=== PATIENT | male | born 1990 | race Hispanic/Latino ===

== ENCOUNTER 2019-03-01 22:55 | Emergency (ER) | payer SELFPAY ==
--- NOTE | 2019-03-02 00:09 | ER ---
Nurse's Notes [facility] Name: Dneny Ramesh Age: 28 yrs Sex: Male : 1990 Arrival Date: 03/01/2019 Time: 22:59 Bed 26 Private MD: Diagnosis: Contusion of left foot Presentation: 03/01 23:08 Presenting complaint: Patient states: left top of foot pain since 1700 while at work ak1 when he twisted his foot against a fork lift. redness and abrasion noted to top of foot. Transition of care: patient was not received from another setting of care. Onset of symptoms was March 01, 2019. Risk Assessment: Do you want to hurt yourself or someone else? Patient reports no desire to harm self or others. Initial Sepsis Screen: Does the patient meet any 2 criteria? No. Patient's initial sepsis screen is negative. Does the patient have a suspected source of infection? No. Patient's initial sepsis screen is negative. Care prior to arrival: None. 23:08 Method Of Arrival: Wheelchair ak1 23:08 Acuity: LALITHA 4 ak1 Triage Assessment: 23:09 General: Appears in no apparent distress. Behavior is calm, cooperative. Pain: ak1 Complains of pain in dorsum of left foot. 23:10 EENT: No signs and/or symptoms were reported regarding the EENT system. Neuro: No ak1 deficits noted. Cardiovascular: No deficits noted. Respiratory: No deficits noted. GI: No signs and/or symptoms were reported involving the gastrointestinal system. : No signs and/or symptoms were reported regarding the genitourinary system. Derm: abrasion to top of left foot. Musculoskeletal: Range of motion: limited in left ankle pt would not walk on left foot. Injury Description: pt stated he twisted his foot against a fork lift at work at 1700 today. 23:13 Injury Description:. ca1 Historical: - Allergies: 23:09 No Known Allergies; ak1 - Home Meds: 23:09 None [Active]; ak1 - PMHx: 23:09 None; ak1 - PSHx: 23:09 None; ak1 - Immunization history:: Adult Immunizations up to date, Last tetanus immunization: up to date < 5 years ago. - Social history:: Smoking status: Patient uses tobacco products, smokes one-half pack cigarettes per day. - Ebola Screening: : No symptoms or risks identified at this time. Screenin:10 Abuse screen: Denies threats or abuse. Denies injuries from another. Nutritional ak1 screening: No deficits noted. Tuberculosis screening: No symptoms or risk factors identified. Fall Risk Gait- Impaired (20 pts.). Assessment: 23:11 General: Appears in no apparent distress. uncomfortable, Behavior is calm, cooperative, ca1 appropriate for age. Pain: Complains of pain in left foot Pain currently is 5 out of 10 on a pain scale. Quality of pain is described as numb, Pain began. Neuro: Level of Consciousness is awake, alert, obeys commands, Oriented to person, place, time, situation, Appropriate for age. Cardiovascular: Heart tones S1 S2 present Capillary refill < 3 seconds Patient's skin is warm and dry. Respiratory: Airway is patent Respiratory effort is even, unlabored, Respiratory pattern is regular, symmetrical, Breath sounds are clear bilaterally. GI: No deficits noted. No signs and/or symptoms were reported involving the gastrointestinal system. : No deficits noted. No signs and/or symptoms were reported regarding the genitourinary system. EENT: No deficits noted. No signs and/or symptoms were reported regarding the EENT system. Derm: Skin is intact, is healthy with good turgor, Skin is pink, warm \T\ dry. Musculoskeletal: Circulation, motion, and sensation intact. Capillary refill < 3 seconds, Range of motion: limited in left ankle. 03/02 00:15 Reassessment: Patient appears in no apparent distress at this time. Patient and/or ca1 family updated on plan of care and expected duration. Pain level reassessed. Patient is alert, oriented x 3, equal unlabored respirations, skin warm/dry/pink. 00:42 Reassessment: Patient appears in no apparent distress at this time. Patient is alert, ca1 oriented x 3, equal unlabored respirations, skin warm/dry/pink. Patient is alert/active/playful, equal unlabored respirations, skin warm/dry/pink. Applied boot at R foot. PT tolerated well. Vital Signs: 03/01 23:08 BP 134 / 97; Pulse 88; Resp 18; Temp 98.3; Pulse Ox 98% on R/A; Weight 79.38 kg (R); ak1 Height 5 ft. 7 in. (170.18 cm) (R); Pain 8/; 03/02 00:05 BP 140 / 95; Pulse 88; Resp 17 S; Pulse Ox 100% ; ca1 00:42 BP 127 / 82; Pulse 90; Resp 16 S; Pulse Ox 99% on R/A; ca1 03/01 23:08 Body Mass Index 27.41 (79.38 kg, 170.18 cm) ak1 ED Course: 03/01 22:59 Patient arrived in ED. es 23:03 Stella Chandra, RN is Primary Nurse. ca1 23:09 Triage completed. ak1 23:09 Arm band placed on Patient placed in an exam room, on a stretcher, Patient notified of ak1 wait time. 23:10 Patient has correct armband on for positive identification. Placed in gown. Bed in low ak1 position. Call light in reach. Side rails up X 1. Adult w/ patient. Pulse ox on. NIBP on. 23:21 Maged Dominguez PA is PHCP. jr8 23:21 Bo Paredes MD is Attending Physician. jr8 03/02 00:01 X-ray completed. Portable x-ray completed in exam room. Patient tolerated procedure kw well. 00:05 XRAY Foot LEFT 3 View In Process Unspecified. EDMS 00:08 Jonas Blanchard MD is Referral Physician. jr8 00:32 walker boot on left foot. ca1 00:44 No provider procedures requiring assistance completed. Patient did not have IV access ca1 during this emergency room visit. Administered Medications: 00:12 Drug: morphine 4 mg Route: IM; Site: right deltoid; ca1 00:32 Follow up: Response: No adverse reaction; Pain is decreased ca1 00:12 Drug: Zofran 4 mg Route: PO; ca1 00:32 Follow up: Response: No adverse reaction; Nausea is decreased ca1 Outcome: 00:08 Discharge ordered by . jr8 00:44 Discharged to home via wheelchair, with significant other. ca1 00:44 Condition: stable 00:44 Discharge instructions given to patient, Instructed on discharge instructions, follow up and referral plans. Demonstrated understanding of instructions, follow-up care. 00:44 Patient left the ED. ca1 Signatures: Dispatcher [employer] [facility] [place], [place] Dominique Davidson Josh, PA PA jr8 Carolina Jackson, RN RN ak1 Stella Chandra, RN RN ca1
--- NOTE | 2019-03-02 00:09 | EDPHYS ---
Physician Documentation [facility] Name: Denny Ramesh Age: 28 yrs Sex: Male : 1990 Arrival Date: 03/01/2019 Time: 22:59 Bed 26 Private MD: ED Physician Bo Paredes HPI: 03/02 00:03 This 28 yrs old Male presents to ER via Wheelchair with complaints of Foot jr8 Injury. 00:03 The patient presents with decreased range of motion, pain, tenderness. The complaints jr8 affect the medial aspect of left foot and dorsum of left foot. Context: The problem was sustained at work, resulted from a crush injury. Onset: The symptoms/episode began/occurred acutely, today. Modifying factors: The symptoms are alleviated by nothing. the symptoms are aggravated by movement, weight bearing. Associated signs and symptoms: The patient has no apparent associated signs or symptoms. Severity of symptoms: At their worst the symptoms were moderate, in the emergency department the symptoms are unchanged. The patient has not experienced similar symptoms in the past. The patient has not recently seen a physician. Patient stated that a forklift at work accidently caught the bottom of his boot causing it to get crushed in between a pipe. Historical: - Allergies: 03/01 23:09 No Known Allergies; ak1 - Home Meds: 23:09 None [Active]; ak1 - PMHx: 23:09 None; ak1 - PSHx: 23:09 None; ak1 - Immunization history:: Adult Immunizations up to date, Last tetanus immunization: up to date < 5 years ago. - Social history:: Smoking status: Patient uses tobacco products, smokes one-half pack cigarettes per day. - Ebola Screening: : No symptoms or risks identified at this time. ROS: 03/02 00:03 Eyes: Negative for injury, pain, redness, and discharge, ENT: Negative for injury, jr8 pain, and discharge, Neck: Negative for injury, pain, and swelling, Cardiovascular: Negative for chest pain, palpitations, and edema, Respiratory: Negative for shortness of breath, cough, wheezing, and pleuritic chest pain, Abdomen/GI: Negative for abdominal pain, nausea, vomiting, diarrhea, and constipation, Back: Negative for injury and pain, Skin: Negative for injury, rash, and discoloration, Neuro: Negative for headache, weakness, numbness, tingling, and seizure. MS/extremity: Positive for abrasion, ecchymosis, pain, tenderness, of the medial aspect of left foot and dorsum of left foot. Exam: 00:03 Eyes: Pupils equal round and reactive to light, extra-ocular motions intact. Lids and jr8 lashes normal. Conjunctiva and sclera are non-icteric and not injected. Cornea within normal limits. Periorbital areas with no swelling, redness, or edema. ENT: Nares patent. No nasal discharge, no septal abnormalities noted. Tympanic membranes are normal and external auditory canals are clear. Oropharynx with no redness, swelling, or masses, exudates, or evidence of obstruction, uvula midline. Mucous membranes moist. Neck: Trachea midline, no thyromegaly or masses palpated, and no cervical lymphadenopathy. Supple, full range of motion without nuchal rigidity, or vertebral point tenderness. No Meningismus. Cardiovascular: Regular rate and rhythm with a normal S1 and S2. No gallops, murmurs, or rubs. Normal PMI, no JVD. No pulse deficits. Respiratory: Lungs have equal breath sounds bilaterally, clear to auscultation and percussion. No rales, rhonchi or wheezes noted. No increased work of breathing, no retractions or nasal flaring. Abdomen/GI: Soft, non-tender, with normal bowel sounds. No distension or tympany. No guarding or rebound. No evidence of tenderness throughout. Back: No spinal tenderness. No costovertebral tenderness. Full range of motion. Skin: Warm, dry with normal turgor. Normal color with no rashes, no lesions, and no evidence of cellulitis. Neuro: Awake and alert, GCS 15, oriented to person, place, time, and situation. Cranial nerves II-XII grossly intact. Motor strength 5/5 in all extremities. Sensory grossly intact. Cerebellar exam normal. Normal gait. 00:03 Musculoskeletal/extremity: Extremities: grossly normal except: noted in the medial aspect of left foot and dorsum of left foot: abrasion, ecchymosis, pain, tenderness, Abrasion with tenderness and bruising to dorsum of left foot. Another bruise noted to bottom medial aspect of left foot. Tender to palpation. No crepitus noted , ROM: intact in all extremities, Circulation is intact in all extremities. Sensation intact. Vital Signs: 03/01 23:08 BP 134 / 97; Pulse 88; Resp 18; Temp 98.3; Pulse Ox 98% on R/A; Weight 79.38 kg (R); ak1 Height 5 ft. 7 in. (170.18 cm) (R); Pain 8/10; 03/02 00:05 BP 140 / 95; Pulse 88; Resp 17 S; Pulse Ox 100% ; ca1 00:42 BP 127 / 82; Pulse 90; Resp 16 S; Pulse Ox 99% on R/A; ca1 03/01 23:08 Body Mass Index 27.41 (79.38 kg, 170.18 cm) ak1 Procedures: 00:07 Splinting: Splint applied to left foot using Ortho 3D boot, applied by nurse. Examined jr8 by me, post splint application: neurovascular intact, 2+ distal pulses palpable, brisk capillary refill noted, Patient tolerated well. MDM: 03/01 23:21 Patient medically screened. jr8 03/02 00:07 Data reviewed: vital signs, nurses notes, radiologic studies, plain films, and as a jr8 result, I will discharge patient. Data interpreted: Pulse oximetry: on room air is 98 %. Interpretation: normal. Test interpretation: by ED physician or midlevel provider: plain radiologic studies, No acute osseous finding on plain film of left foot . Counseling: I had a detailed discussion with the patient and/or guardian regarding: the historical points, exam findings, and any diagnostic results supporting the discharge/admit diagnosis, radiology results, the need for outpatient follow up, a orthopedic surgeon, to return to the emergency department if symptoms worsen or persist or if there are any questions or concerns that arise at home. 03/01 23:27 Order name: XRAY Foot LEFT 3 View jr8 03/02 00:06 Order name: Splint; Complete Time: 00:32 jr8 Administered Medications: 00:12 Drug: morphine 4 mg Route: IM; Site: right deltoid; ca1 00:32 Follow up: Response: No adverse reaction; Pain is decreased ca1 00:12 Drug: Zofran 4 mg Route: PO; ca1 00:32 Follow up: Response: No adverse reaction; Nausea is decreased ca1 Disposition: 02:54 Co-signature as Attending Physician, Bo Paredes MD. gs Disposition: 03/02/19 00:08 Discharged to Home. Impression: Contusion of left foot. - Condition is Stable. - Discharge Instructions: Foot Contusion. - Medication Reconciliation Form, Thank You Letter, Antibiotic Education, Prescription Opioid Use, Work release form form. - Follow up: Jonas Blanchard MD; When: 5 - 6 days; Reason: Recheck today's complaints, Continuance of care, Re-evaluation by your physician. - Problem is new. - Symptoms have improved. Signatures: Dispatcher [employer] EDMS Maged Dominguez PA PA jr8 Carolina Jackson, RN RN ak1 Bo Paredes MD MD Acob, Stella, RN RN ca1 Corrections: (The following items were deleted from the chart) 00:44 00:08 03/02/2019 00:08 Discharged to Home. Impression: Contusion of left foot. ca1 Condition is Stable. Forms are Medication Reconciliation Form, Thank You Letter, Antibiotic Education, Prescription Opioid Use. Follow up: Jonas Blanchard; When: 5 - 6 days; Reason: Recheck today's complaints, Continuance of care, Re-evaluation by your physician. Problem is new. Symptoms have improved. jr8
[2019-03-02] MEDS ORDERED: MORPHINE 4 MG/ML SYR ONE (00:22)
[2019-03-02] MEDS ORDERED: ONDANSETRON 4 MG (ODT) TAB ONE (00:22)
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
== END 2019-03-02 00:44 | disposition home or self-care (01) ==
LOC: ER 22:55
DX: S90.32XA Contusion of left foot, initial encounter (principal); W23.0XXA Caught, crushed, jammed, or pinched between moving objects, initial encounter; Y93.89 Activity, other specified; Y92.89 Other specified places as the place of occurrence of the external cause; Y99.8 Other external cause status; F17.210 Nicotine dependence, cigarettes, uncomplicated
CPT/HCPCS: 96372; 99284

== ENCOUNTER 2019-05-17 07:10 | Emergency (ER) | payer SELFPAY ==
[2019-05-17] MEDS ORDERED: ONDANSETRON 4 MG/2 ML VIAL ONE ×2 (07:16→07:39)
[2019-05-17] MEDS ORDERED: NA CHLORIDE 0.9% 2,000 ML ONE (07:16)
[2019-05-17 07:34] LABS: Basophils % 0.6 % (0-1.3); Hematocrit 41.4 % (39.6-49.0); Lymphocytes % 26.6 % (15.3-44.8); MPV 7.6 fL (7.6-11.3); RBC Red Blood Cell Count 4.52 M/uL (4.33-5.43)
[2019-05-17] MEDS ORDERED: CEFAZOLIN SODIUM 1 GM/VIAL ONE (07:34)
[2019-05-17] MEDS ORDERED: CEFAZOLIN/SWI 1gm 1 GM/10 ML SYR ONE (07:34)
[2019-05-17] MEDS ORDERED: TETANUS & DIPHTHERIA TOX,ADULT 0.5 ML VIAL ONE (07:34)
[2019-05-17 07:46] LABS: Potassium 3.3 mmol/L (3.5-5.1)
[2019-05-17 08:04] LABS: Protime INR 0.96
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
[2019-05-17 08:15] LABS: ALT/SGPT 41 U/L (12-78); AST/SGOT 19 U/L (15-37); Albumin 4.3 g/dL (3.4-5.0); Alkaline Phosphatase 77 U/L (45-117); Bilirubin Direct < 0.1 mg/dL (0-0.2); Bilirubin Total 0.3 mg/dL (0.2-1.0)
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
[2019-05-17] MEDS ORDERED: NA CHLORIDE 0.9% 1,000 ML ONE (08:25)
[2019-05-17] MEDS ORDERED: KCL 20 MEQ/100 mL IVPB 20 MEQ/100 ML BAG IV ONE (08:25)
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
[2019-05-17 10:25] LABS: Urine Blood 1+ (NEG); Urine Glucose NEGATIVE (NEG); Urine Protein NEGATIVE (NEG); Urine pH 5.5 (5.0-7.0)
[2019-05-17 10:40] LABS: Barbiturates NEGATIVE (NEGATIVE); Benzodiazepines NEGATIVE (NEGATIVE); Cocaine NEGATIVE (NEGATIVE); METHAMPHETAM POSITIVE (NEGATIVE); Methadone NEGATIVE (NEGATIVE); Opiates NEGATIVE (NEGATIVE); Phencyclidine NEGATIVE (NEGATIVE); THC Cannibis NEGATIVE (NEGATIVE)
--- NOTE | 2019-05-18 17:39 | EKG ---
Test Date: 2019-05-17 Test Time: 08:11:57 Hauling Contractor: [place] MEASUREMENT RESULTS: Intervals: Rate: 117 KS: 134 QRSD: 66 QT: 320 QTc: 446 [place]: P: 59 KS: 134 QRS: 56 T: 46 INTERPRETIVE STATEMENTS: Sinus tachycardia Otherwise normal ECG No previous ECG available for comparison Electronically Signed On 05-18-19 17:35:24 CDT by Gigi Mracos
== END 2019-05-17 10:35 | disposition home or self-care (01) ==
LOC: ER 07:10
PROC: 0JQ10ZZ Repair Face Subcutaneous Tissue and Fascia, Open Approach (ICD-10-PCS; principal; 2019-05-17)
DX: S01.81XA Laceration without foreign body of other part of head, initial encounter (principal); F10.129 Alcohol abuse with intoxication, unspecified; E87.6 Hypokalemia; Y09 Assault by unspecified means; Y93.9 Activity, unspecified; Y92.89 Other specified places as the place of occurrence of the external cause; Z23 Encounter for immunization; Z72.0 Tobacco use
CPT/HCPCS: 36415; 70450; 70486; 71045; 72125; 76377; 80048; 80076; 80307; 80320; 80329; 81003; 85025; 85610; 85730; 86850; 86900; 86901; 90471; 90714; 93005; 96366; 96375; 99291; 99292; J0690; J2405; J7030

== ENCOUNTER 2019-10-15 15:27 | Emergency (ER) | payer SELFPAY ==
[2019-10-15] MEDS ORDERED: LIDOCAINE 1% MPF 5 ML VIAL ONE (16:14)
--- NOTE | 2019-10-15 16:21 | RAD REPORT ---
EXAM DESCRIPTION: RAD - Hand Right 3 View - 10/15/2019 4:02 pm CLINICAL HISTORY: Right hand pain status post injury FINDINGS: No fracture or dislocation is seen. Soft tissue laceration lateral fifth proximal phalanx. 3 millimeter radiopaque foreign body is presen t
[2019-10-15] MEDS ORDERED: BUPIVACAINE 0.5% PF 10 ML VIAL ONE (16:27)
[2019-10-15] MEDS ORDERED: TETANUS & DIPHTHERIA TOX,ADULT 0.5 ML VIAL ONE (17:24)
--- NOTE | 2019-10-15 17:27 | RAD REPORT ---
EXAM DESCRIPTION: RAD - Hand Right 2 View - 10/15/2019 5:16 pm CLINICAL HISTORY: Foreign body right hand FINDINGS: Previously described foreign body is not visualized
--- NOTE | 2019-10-15 17:45 | EDPHYS ---
Physician Documentation [facility] Name: Denny Ramesh Age: 29 yrs Sex: Male : 1990 Arrival Date: 10/15/2019 Time: 15:28 Bed 12 Private MD: ED Physician Jason John HPI: 10/15 16:14 This 29 yrs old Male presents to ER via Ambulatory with complaints of Finger pm1 Laceration. 16:14 The patient or guardian reports a laceration, irregular. The complaints affect the pm1 medial aspect of right 5th finger. Context: The problem was sustained at work, resulted from glass window. Onset: The symptoms/episode began/occurred just prior to arrival. Modifying factors: The symptoms are alleviated by pressure to area, the symptoms are aggravated by nothing. Associated signs and symptoms: Pertinent negatives: cyanosis distally, decreased sensation distally, numbness distally, tingling distally. Severity of symptoms: in the emergency department the symptoms are unchanged. The patient has not experienced similar symptoms in the past. It is unknown whether or not the patient has recently seen a physician. Patient was breaking down a wall that had a window pane on it. The wall fell down with the glass and cut the medial aspect of his right proximal 5th finger. No foreign body sensation. Sensation and full range of motion intact to right fingers. Historical: - Allergies: 15:37 No Known Allergies; sg - Home Meds: 15:37 None [Active]; sg - PMHx: 15:37 None; sg - PSHx: 15:37 None; sg - Immunization history:: Last tetanus immunization: < 10 years ago. - Coronavirus screen:: The patient has NOT traveled to [place], [place], or [place] in the past 14 days. The patient has NOT had contact with known/suspected case of Coronavirus?. - Social history:: Smoking status: Patient denies any tobacco usage or history of. - Ebola Screening: : Patient negative for fever greater than or equal to 101.5 degrees Fahrenheit, and additional compatible Ebola Virus Disease symptoms Patient denies exposure to infectious person Patient denies travel to an Ebola-affected area in the 21 days before illness onset No symptoms or risks identified at this time. ROS: 16:14 Constitutional: Negative for fever, chills, and weight loss, Eyes: Negative for injury, pm1 pain, redness, and discharge, Cardiovascular: Negative for chest pain, palpitations, and edema, Respiratory: Negative for shortness of breath, cough, wheezing, and pleuritic chest pain, Abdomen/GI: Negative for abdominal pain, nausea, vomiting, diarrhea, and constipation, Back: Negative for injury and pain. 16:14 Neuro: Negative for headache, weakness, numbness, tingling, and seizure. 16:14 MS/extremity: Positive for laceration, of the medial aspect of proximal base of right 5th finger, Negative for decreased range of motion, deformity. 16:14 Skin: Positive for laceration(s), as noted on MS/extremity. Exam: 16:14 Constitutional: This is a well developed, well nourished patient who is awake, alert, pm1 and in no acute distress. Head/Face: Normocephalic, atraumatic. Chest/axilla: Normal chest wall appearance and motion. Nontender with no deformity. No lesions are appreciated. Cardiovascular: Regular rate and rhythm with a normal S1 and S2. No gallops, murmurs, or rubs. Normal PMI, no JVD. No pulse deficits. Respiratory: Lungs have equal breath sounds bilaterally, clear to auscultation and percussion. No rales, rhonchi or wheezes noted. No increased work of breathing, no retractions or nasal flaring. Back: No spinal tenderness. No costovertebral tenderness. Full range of motion. 16:14 Skin: Appearance: normal except for affected area, injury, laceration(s), that can be described as irregular, without bleeding, base of medial aspect of right 5th proximal phalanx. 16:14 Neuro: Orientation: is normal, Motor: is normal, moves all fours, Sensation: is normal, no obvious gross deficits. Vital Signs: 15:37 BP 152 / 72; Pulse 78; Resp 18; Temp 97.7; Pulse Ox 100% on R/A; Pain 6/10; sg 15:45 BP 135 / 70; Pulse 72; Resp 14; Temp 97.9(O); Pulse Ox 100% on R/A; Pain 0/10; ls4 Procedures: 17:11 Foreign Body Removal: a fragment of glass, from the laceration to medial aspect of pm1 proximal phalanx of right little finger, by tweezers, The patient tolerated the removal well, local anesthesia with Marcaine and lidocaine. Laceration: 17:41 Wound Repair of 2cm ( 0.8in ) subcutaneous laceration to medial aspect of right 5th pm1 finger. Irregularly shaped.. Distal neuro/vascular/tendon intact. Anesthesia: Local anesthetic administered with 3 mls of Lido/Marcaine. Wound prep: Extensive cleansing with betadine by me, Wound irrigation with saline by me, Wound explored extensively, Copious irrigation. Skin closed with 7 4-0 Prolene using simple sutures and sterile technique. Dressed with Neosporin, 4x4's, finger splint. Patient tolerated well. MDM: 15:41 Patient medically screened. pm1 17:12 Data reviewed: vital signs. Data interpreted: Pulse oximetry: on room air is 100 %. pm1 Interpretation: normal. 17:41 Counseling: I had a detailed discussion with the patient and/or guardian regarding: the pm1 historical points, exam findings, and any diagnostic results supporting the discharge/admit diagnosis, radiology results, the need for outpatient follow up, a hand specialist, to return to the emergency department if symptoms worsen or persist or if there are any questions or concerns that arise at home. 10/15 15:46 Order name: Hand Right 3 View XRAY; Complete Time: 16:41 pm1 10/15 17:02 Order name: Hand Right 2 View XRAY; Complete Time: 17:40 pm1 10/15 15:46 Order name: Prolene, Sutures; Complete Time: 16:26 pm1 10/15 15:46 Order name: Dressing - Wound; Complete Time: 16:26 pm10/15 15:46 Order name: Gloves, Sterile; Complete Time: 16:26 pm1 10/15 15:46 Order name: Setup Suture Tray; Complete Time: 16:26 pm1 10/15 17:44 Order name: Finger Splint; Complete Time: 17:45 pm1 Administered Medications: 16:14 Drug: Lidocaine (1 %) 5 ml {Note: PER ROSITA MANAGER RESORT.} Volume: 5 ml; Route: Infiltration; ls4 16:25 Drug: Marcaine (0.5 %) 10 ml {Note: per janice montejo MANAGER RESORT.} Volume: 10 ml; Route: ls4 Infiltration; 17:15 Drug: Tetanus-Diphtheria Toxoid Adult 0.5 ml {Senior Dentist: [employer]. Exp: ls4 08/13/2021. Lot #: [id number]. } Route: IM; Site: right deltoid; 17:31 Follow up: Response: No adverse reaction ls4 Disposition: 18:15 Co-signature as Attending Physician, Jason John MD. rn Disposition: 10/15/19 17:43 Discharged to Home. Impression: Laceration with foreign body of right little finger without damage to nail - foreign body removed. - Condition is Stable. - Discharge Instructions: Laceration Care, Adult. - Prescriptions for Keflex 500 mg Oral Capsule - take 1 capsule by ORAL route every 6 hours for 10 days; 40 capsule. - Medication Reconciliation Form, Thank You Letter, Antibiotic Education, Prescription Opioid Use, Work release form form. - Follow up: Emergency Department; When: As needed; Reason: Worsening of condition. Follow up: Nadir Potter MD; When: 2 - 3 days; Reason: Recheck today's complaints, Continuance of care, Re-evaluation by your physician. - Problem is new. - Symptoms have improved. Signatures: Dispatcher [employer] EDJonas Ac RN RN Jason Antonio MD MD rn Marinas, Patrick, ELADIO MANAGER RESORT pm1 Molly Ortiz RN RN ls4 Corrections: (The following items were deleted from the chart) 18:15 17:43 10/15/2019 17:43 Discharged to Home. Impression: Laceration with foreign body of ls4 right little finger without damage to nail - foreign body removed. Condition is Stable. Forms are Medication Reconciliation Form, Thank You Letter, Antibiotic Education, Prescription Opioid Use. Follow up: Emergency Department; When: As needed; Reason: Worsening of condition. Follow up: Nadir Potter; When: 2 - 3 days; Reason: Recheck today's complaints, Continuance of care, Re-evaluation by your physician. Problem is new. Symptoms have improved. pm1
--- NOTE | 2019-10-15 17:45 | ER ---
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 Transition of care: patient was not received from another setting of care. Onset of symptoms was October 15, 2019. Risk Assessment: Do you want to hurt yourself or someone else? Patient reports no desire to harm self or others. Initial Sepsis Screen: Does the patient meet any 2 criteria? No. Patient's initial sepsis screen is negative. Does the patient have a suspected source of infection? No. Patient's initial sepsis screen is negative. Care prior to arrival: None. 15:35 Method Of Arrival: Ambulatory sg 15:35 Acuity: LALITHA 3 sg Historical: - Allergies: 15:37 No Known Allergies; sg - Home Meds: 15:37 None [Active]; sg - PMHx: 15:37 None; sg - PSHx: 15:37 None; sg - Immunization history:: Last tetanus immunization: < 10 years ago. - Coronavirus screen:: The patient has NOT traveled to [place], [place], or [place] in the past 14 days. The patient has NOT had contact with known/suspected case of Coronavirus?. - Social history:: Smoking status: Patient denies any tobacco usage or history of. - Ebola Screening: : Patient negative for fever greater than or equal to 101.5 degrees Fahrenheit, and additional compatible Ebola Virus Disease symptoms Patient denies exposure to infectious person Patient denies travel to an Ebola-affected area in the 21 days before illness onset No symptoms or risks identified at this time. Screenin:45 Abuse screen: Denies threats or abuse. Denies injuries from another. Nutritional ls4 screening: No deficits noted. Tuberculosis screening: No symptoms or risk factors identified. Fall Risk None identified. Assessment: 15:45 Pain: Denies pain. Neuro: No deficits noted. Cardiovascular: No deficits noted. ls4 Respiratory: No deficits noted. Vital Signs: 15:37 BP 152 / 72; Pulse 78; Resp 18; Temp 97.7; Pulse Ox 100% on R/A; Pain 6/10; sg 15:45 BP 135 / 70; Pulse 72; Resp 14; Temp 97.9(O); Pulse Ox 100% on R/A; Pain 0/10; ls4 ED Course: 15:28 Patient arrived in ED. rg4 15:36 Triage completed. sg 15:37 Arm band placed on. sg 15:41 Janice Montejo NP is PHCP. pm1 15:41 Jason John MD is Attending Physician. pm1 15:41 Molly Ortiz RN is Primary Nurse. ls4 15:45 Patient has correct armband on for positive identification. Bed in low position. Call ls4 light in reach. Side rails up X 1. 15:45 No provider procedures requiring assistance completed. Patient did not have IV access ls4 during this emergency room visit. 16:04 Hand Right 3 View XRAY In Process Unspecified. EDMS 17:20 Hand Right 2 View XRAY In Process Unspecified. EDMS 17:36 Assist provider with laceration repair on medial aspect of right hand and medial aspect ls4 of right fingers that was between 7.6 to 12.5 cm using sutures. Set up tray. Performed by Janice Montejo NP Dressed with Rosalba, Neosporin, Patient tolerated well. 17:43 Nadir Potter MD is Referral Physician. pm1 17:50 Aluminum finger splint applied to palmar aspect of distal phalanx of right little dh3 finger, palmar aspect of middle phalanx of right little finger and palmar aspect of proximal phalanx of right little finger. Administered Medications: 16:14 Drug: Lidocaine (1 %) 5 ml {Note: PER ROSITA SUPERVISOR FISH BAIT PROCESSING.} Volume: 5 ml; Route: Infiltration; ls4 16:25 Drug: Marcaine (0.5 %) 10 ml {Note: per janice montejo NP.} Volume: 10 ml; Route: ls4 Infiltration; 17:15 Drug: Tetanus-Diphtheria Toxoid Adult 0.5 ml {[employer]: [employer]. Exp: ls4 08/13/2021. Lot #: [id number]. } Route: IM; Site: right deltoid; 17:31 Follow up: Response: No adverse reaction ls4 Outcome: 17:43 Discharge ordered by . pm1 18:15 Patient left the ED. ls4 Signatures: Dispatcher [employer] EDMS Jonas Perdomo, RN RN Janice Ramirez, SUPERVISOR FISH BAIT PROCESSING SUPERVISOR FISH BAIT PROCESSING pm1 Andreia Martins rg4 Sherri Mcfadden 3 Molly Ortiz RN RN ls4
[2019-10-15 18:58] VITALS: O2SAT 100
[2019-10-15 18:59] VITALS: BP 135/70; TEMP 97.9
== END 2019-10-15 18:15 | disposition home or self-care (01) ==
LOC: ER 15:27
PROC: 0JQJ0ZZ Repair Right Hand Subcutaneous Tissue and Fascia, Open Approach (ICD-10-PCS; principal; 2019-10-15)
DX: S61.226A Laceration with foreign body of right little finger without damage to nail, initial encounter (principal); W25.XXXA Contact with sharp glass, initial encounter; Y93.H3 Activity, building and construction; Y92.69 Other specified industrial and construction area as the place of occurrence of the external cause; Y99.0 Civilian activity done for income or pay
CPT/HCPCS: 90471; 90714; 99284

== ENCOUNTER 2020-10-20 13:13 | Emergency (ER) | payer SELFPAY ==
[2020-10-20 14:12] LABS: Absolute Lymphocytes (CBC) 2.3 K/uL (0.7-4.9); Basophils % 0.6 % (0-1.3); Hematocrit 45.1 % (39.6-49.0); Lymphocytes % 12.8 % (15.3-44.8); MPV 7.4 fL (7.6-11.3); RBC Red Blood Cell Count 5.01 M/uL (4.33-5.43)
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
--- NOTE | 2020-10-20 15:30 | RAD REPORT ---
EXAM DESCRIPTION: RAD - Chest Single View - 10/20/2020 3:09 pm CLINICAL HISTORY: DYSPNEA Chest pain. COMPARISON: Chest Single View dated 05/17/2019 FINDINGS: Portable technique limits examination quality. The lungs are grossly clear. The heart is normal in size. No displaced fractures. IMPRESSION: No acute intrathoracic process suspected.
[2020-10-20] MEDS ORDERED: PIPER/TAZO/NS 3.375gm 3.375 GM/100 ML BAG ONE (15:51)
[2020-10-20 16:03] VITALS: TEMP 97.8
[2020-10-20 16:04] VITALS: BP 142/95; O2SAT 99
== END 2020-10-20 15:54 | disposition short-term general hospital (02) ==
LOC: ER 13:13
DX: J39.8 Other specified diseases of upper respiratory tract (principal); W50.0XXA Accidental hit or strike by another person, initial encounter; Y93.9 Activity, unspecified; Y92.9 Unspecified place or not applicable; Z20.822 Contact with and (suspected) exposure to COVID-19; F17.210 Nicotine dependence, cigarettes, uncomplicated
CPT/HCPCS: 36415; 70491; 71045; 80048; 85025; 96365; 99285; J2543; Q9967; U0003

== ENCOUNTER 2020-11-09 11:26 | Emergency (ER) | payer SELFPAY ==
--- OUTSIDE RECORDS SUMMARY | 2020-11-09 11:29 | XMS REPORT | Continuity of Care Document ---
:1990 Author Organization [facility] t Address [address] [place] [address] [address]. [address] [place] [address] Care Team Providers Name Role Phone Francisca ZAMUDIO Attending Clinician Problems This patient has no known problems. Allergies, Adverse Reactions, Alerts This patient has no known allergies or adverse reactions. Medications This patient has no known medications. Procedures This patient has no known procedures. Encounters Start End Encounter Admission Attending Care Care Encounter Source Date/Time Date/Time Type Type Clinicians Facility Department ID 2020-11-03 2020-11-03 Office NAOMI Espinosa [id number] 14:35:34 14:50:34 Visit [facility] [id number] Cancer [id number] Center - [id number] MDA 144 Results This patient has no known results.
[2020-11-09 13:13] LABS: Absolute Lymphocytes (CBC) 2.1 K/uL (0.7-4.9); Basophils % 0.9 % (0-1.3); Hematocrit 41.4 % (39.6-49.0); Lymphocytes % 28.2 % (15.3-44.8); MPV 7.7 fL (7.6-11.3); RBC Red Blood Cell Count 4.56 M/uL (4.33-5.43)
[2020-11-09 13:26] LABS: BUN Blood Urea Nitrogen 16 mg/dL (7-18); Bicarbonate 25 mmol/L (21-32); Glucose Level 98 mg/dL (74-106); Potassium 4.1 mmol/L (3.5-5.1); Sodium Level 140 mmol/L (136-145)
--- NOTE | 2020-11-09 13:28 | RAD REPORT ---
EXAM DESCRIPTION: CT - Soft Tissue Neck W/Contr - 11/09/2020 1:14 pm CLINICAL HISTORY: Neck pain with sore throat COMPARISON: October 20, 2020 TECHNIQUE: Computed axial tomography of the neck was obtained. 50 cc Isovue 300 was administered in travenously. Coronal and sagittal reconstruction was performed. All CT scans are performed using dose optimization technique as appropriate and may include automated exposure control or mA/KV adjustment according to patient size. FINDINGS: Plate and screws have been placed into the thyroid cartilage. The air throughout the fascial planes and soft tissues of the neck have resolved since the prior exam ination. The pharynx, tongue base, larynx and subglottic trachea appear unremarkable The parotid, submandibular and thyroid glands appear unremarkable. No lymphadenopathy is seen The sinuses and mastoids are clear. IMPRESSION: Postsurgical changes with resolution of the air throughout the fascial planes and soft t issues of the neck
--- NOTE | 2020-11-09 13:34 | RAD REPORT ---
EXAM DESCRIPTION: CT - Abdomen Pelvis W Contrast - 11/09/2020 1:14 pm CLINICAL HISTORY: Abdominal pain COMPARISON: none. TECHNIQUE: Computed axial tomography of the abdomen pelvis was obtained. 100 cc Isovue-300 was admin istered intravenously. Oral contrast was not requested which limits evaluation of bowel and appendix. All CT scans are performed using dose optimization technique as appropriate and may include automated exposure control or mA/KV adjustment according to patient size. FINDINGS: The liver, spleen, pancreas, adrenal and kidneys appear unremarkable. There is no evidence of diverticulitis. IMPRESSION: No acute abnormality is displayed.
--- NOTE | 2020-11-09 13:43 | ER ---
Nurse's Notes [facility] Name: Denny Ramesh Age: 30 yrs Sex: Male : 1990 Arrival Date: 11/09/2020 Time: 11:29 Bed 27 Private MD: Diagnosis: Person with feared health complaint in whom no diagnosis is made Presentation: 11/09 11:35 Chief complaint: Patient states: "I had surgery for vocal cords about a week ago at [address] in [place] and I've been feeling like there is something stuck in my throat ever since I ate some soup on Friday". Pt denies SOB, denies vomiting. Coronavirus screen: At this time, the client does not indicate any symptoms associated with coronavirus-19. Ebola Screen: Patient negative for fever greater than or equal to 101.5 degrees Fahrenheit, and additional compatible Ebola Virus Disease symptoms. Initial Sepsis Screen: Does the patient meet any 2 criteria? No. Patient's initial sepsis screen is negative. Does the patient have a suspected source of infection? No. Patient's initial sepsis screen is negative. Risk Assessment: Do you want to hurt yourself or someone else? Patient reports no desire to harm self or others. Onset of symptoms was October 2020. 11:35 Acuity: LALITHA 3 aa5 11:35 Method Of Arrival: Ambulatory aa5 Historical: - Allergies: 11:38 No Known Allergies; aa5 - PMHx: 11:38 None; aa5 - PSHx: 11:38 Vocal cords; aa5 - Immunization history:: Adult Immunizations unknown. - Social history:: Smoking status: Patient reports the use of cigarette tobacco products, smokes one-half pack cigarettes per day. Screenin:52 Abuse screen: Denies threats or abuse. Denies injuries from another. Nutritional zb screening: No deficits noted. Tuberculosis screening: No symptoms or risk factors identified. Fall Risk None identified. Assessment: 12:42 General: Appears in no apparent distress. uncomfortable, Behavior is calm, cooperative, zb appropriate for age. Pain: Complains of pain in mid-sternal area, epigastric area, left upper quadrant and thyroid cartilage Pain does not radiate. Pain currently is 5 out of 10 on a pain scale. Quality of pain is described as tender, Is continuous, Aggravated by eating, drinking, Also complains of nausea. Neuro: Level of Consciousness is awake, alert, obeys commands, Oriented to person, place, time, situation. Neuro: Reports difficulty swallowing. Cardiovascular: Cardiovascular: Heart tones S1 S2 present Patient's skin is warm and dry. Pulses are all present. Edema is absent. Chest pain is described as vague, diffuse. Respiratory: Reports shortness of breath on exertion Airway is patent Respiratory effort is even, unlabored, Respiratory pattern is regular, Breath sounds are clear bilaterally. Onset: The symptoms/episode began/occurred since Friday , the patient has mild shortness of breath. GI: Abdomen is round non-distended, Bowel sounds present X 4 quads. Abdomen is tender to palpation in epigastric area and left upper quadrant Reports upper abdominal pain, bloating, indigestion, nausea. : No signs and/or symptoms were reported regarding the genitourinary system. EENT: Throat is clear is pink. Derm: Skin is intact, is healthy with good turgor, Skin is dry, Skin is normal, Skin temperature is warm. Musculoskeletal: Range of motion: intact in all extremities. Vital Signs: 11:35 BP 140 / 99; Pulse 69; Resp 16 S; Temp 97.7(O); Pulse Ox 100% on R/A; Weight 70.31 kg aa5 (R); Height 5 ft. 6 in. (167.64 cm) (R); 12:53 BP 128 / 86; Pulse 91; Resp 16; Pulse Ox 100% on R/A; zb 11:35 Body Mass Index 25.02 (70.31 kg, 167.64 cm) aa5 ED Course: 11:29 Patient arrived in ED. as 11:35 Arm band placed on. aa5 11:37 Triage completed. aa5 11:42 Mariely Glynn FNP-C is [facility]. kb 11:42 Denny Bolton MD is Attending Physician. kb 12:10 Parisa Al RN is Primary Nurse. zb 12:52 Patient has correct armband on for positive identification. Pulse ox on. NIBP on. Door zb closed. Noise minimized. 12:53 Inserted saline lock: 20 gauge in right antecubital area, using aseptic technique. zb 13:14 CT Soft Tissue Neck W/contr In Process Unspecified. EDMS 13:15 CT Abd/Pelvis - IV Contrast Only In Process Unspecified. EDMS 14:00 No provider procedures requiring assistance completed. IV discontinued, intact, zb bleeding controlled, No redness/swelling at site. Pressure dressing applied. Administered Medications: No medications were administered Outcome: 13:43 Discharge ordered by . johnnie 14:00 Discharged to home ambulatory. zb 14:00 Condition: stable 14:00 Discharge instructions given to patient, family, Instructed on discharge instructions, follow up and referral plans. Demonstrated understanding of instructions, follow-up care. 14:14 Patient left the ED. zb Signatures: Dispatcher [employer] EDMS Mariely Glynn, SHOT PEEN OPERATOR-C SHOT PEEN OPERATOR-Shobha Zepeda Audri, RN RN aa5 Parisa Al, RN RN zb
--- NOTE | 2020-11-09 13:43 | EDPHYS ---
Physician Documentation [facility] Name: Denny Ramesh Age: 30 yrs Sex: Male : 1990 Arrival Date: 11/09/2020 Time: 11:29 Bed 27 Private MD: ED Physician Denny Bolton HPI: 11/09 14:15 This 30 yrs old Male presents to ER via Ambulatory with complaints of Sore kb Throat. 14:15 The patient presents with sore throat, a foreign body sensation in the throat. The kb patient describes throat pain as constant. Onset: The symptoms/episode began/occurred 2 day(s) ago. Severity of symptoms: At their worst the symptoms were mild, in the emergency department the symptoms are unchanged. Modifying factors: The symptoms are alleviated by nothing, the symptoms are aggravated by swallowing, Patient's oral intake status: good. Associated signs and symptoms: Pertinent positives: Sore throat. The patient has not experienced similar symptoms in the past. The patient has been recently seen by a physician:. Pt reports he swallowed some soup 2 days ago and felt a pop or something in throat. Recently had surgery on his vocal chords so he was concerned that he ruined something from the surgery. Reports left abd pain since then as well. States "I just came to make sure everything was ok from the surgery.". Historical: - Allergies: 11:38 No Known Allergies; aa5 - PMHx: 11:38 None; aa5 - PSHx: 11:38 Vocal cords; aa5 - Immunization history:: Adult Immunizations unknown. - Social history:: Smoking status: Patient reports the use of cigarette tobacco products, smokes one-half pack cigarettes per day. ROS: 14:12 Constitutional: Negative for fever, chills, and weight loss, Neck: Negative for injury, kb pain, and swelling, Cardiovascular: Negative for chest pain, palpitations, and edema, Respiratory: Negative for shortness of breath, cough, wheezing, and pleuritic chest pain, MS/Extremity: Negative for injury and deformity, Skin: Negative for injury, rash, and discoloration, Neuro: Negative for headache, weakness, numbness, tingling, and seizure. 14:12 ENT: Positive for foreign body sensation, sore throat. 14:12 Abdomen/GI: Positive for abdominal pain. Exam: 14:13 Constitutional: This is a well developed, well nourished patient who is awake, alert, kb and in no acute distress. Head/Face: Normocephalic, atraumatic. Neck: Trachea midline, no thyromegaly or masses palpated, and no cervical lymphadenopathy. Supple, full range of motion without nuchal rigidity, or vertebral point tenderness. No Meningismus. Healed surgical scar noted to neck from recent surgery Chest/axilla: Normal chest wall appearance and motion. Nontender with no deformity. No lesions are appreciated. Cardiovascular: Regular rate and rhythm with a normal S1 and S2. No gallops, murmurs, or rubs. Normal PMI, no JVD. No pulse deficits. Respiratory: Lungs have equal breath sounds bilaterally, clear to auscultation and percussion. No rales, rhonchi or wheezes noted. No increased work of breathing, no retractions or nasal flaring. 14:13 ENT: Posterior pharynx: is normal. 14:13 Abdomen/GI: Inspection: abdomen appears normal, Bowel sounds: normal, Palpation: soft, in all quadrants, mild abdominal tenderness, in the left upper quadrant and left lower quadrant. 14:13 Neuro: Orientation: is normal, to person, place, time \\T\\ situation. Mentation: is normal, able to follow commands, Motor: is normal, moves all fours, Sensation: is normal, Gait: is steady. Vital Signs: 11:35 BP 140 / 99; Pulse 69; Resp 16 S; Temp 97.7(O); Pulse Ox 100% on R/A; Weight 70.31 kg aa5 (R); Height 5 ft. 6 in. (167.64 cm) (R); 12:53 BP 128 / 86; Pulse 91; Resp 16; Pulse Ox 100% on R/A; zb 11:35 Body Mass Index 25.02 (70.31 kg, 167.64 cm) aa5 MDM: 11:42 Patient medically screened. kb 14:11 Data reviewed: vital signs, nurses notes. Data interpreted: Pulse oximetry: on room air kb is 100 %. Interpretation: normal. Counseling: I had a detailed discussion with the patient and/or guardian regarding: the historical points, exam findings, and any diagnostic results supporting the discharge/admit diagnosis, lab results, radiology results, the need for outpatient follow up, a family practitioner, to return to the emergency department if symptoms worsen or persist or if there are any questions or concerns that arise at home. 11/09 11:56 Order name: CBC with Diff; Complete Time: 13:21 kb 11/09 11:56 Order name: Basic Metabolic Panel; Complete Time: 13:40 kb 11/09 11:56 Order name: IV Start; Complete Time: 12:27 kb 11/09 11:56 Order name: CT Soft Tissue Neck W/contr; Complete Time: 13:40 kb 11/09 11:56 Order name: CT Abd/Pelvis - IV Contrast Only; Complete Time: 13:40 kb Administered Medications: No medications were administered Disposition: 15:30 Co-signature as Attending Physician, Denny Bolton MD I agree with the assessment and kdr plan of care. Disposition: 11/09/20 13:43 Discharged to Home. Impression: Person with feared health complaint in whom no diagnosis is made. - Condition is Stable. - Discharge Instructions: Sore Throat, [id number]. - Medication Reconciliation Form, Thank You Letter, Antibiotic Education, Prescription Opioid Use form. - Work release form (11/09/20 14:16). zb - Follow up: Emergency Department; When: As needed; Reason: Worsening of condition. Follow up: Private Physician; When: 2 - 3 days; Reason: Recheck today's complaints, Continuance of care, Re-evaluation by your physician. Signatures: Dispatcher [employer] Mariely Sparrow, SCHOOL MANAGER-C SCHOOL MANAGER-Ckb Denny Bolton MD MD [facility] Maricruz Moe RN RN aa5 Parisa Al RN RN zb Corrections: (The following items were deleted from the chart) 14:14 13:43 11/09/2020 13:43 Discharged to Home. Impression: Person with feared health zb complaint in whom no diagnosis is made. Condition is Stable. Forms are Medication Reconciliation Form, Thank You Letter, Antibiotic Education, Prescription Opioid Use. Follow up: Emergency Department; When: As needed; Reason: Worsening of condition. Follow up: Private Physician; When: 2 - 3 days; Reason: Recheck today's complaints, Continuance of care, Re-evaluation by your physician. kb
[2020-11-09 14:25] VITALS: TEMP 97.7; O2SAT 100
[2020-11-09 14:27] VITALS: BP 128/86
== END 2020-11-09 14:14 | disposition home or self-care (01) ==
LOC: ER 11:26
DX: Z71.1 Person with feared health complaint in whom no diagnosis is made (principal); F17.210 Nicotine dependence, cigarettes, uncomplicated
CPT/HCPCS: 36415; 70491; 74177; 80048; 82565; 85025; 99283; Q9967